=== PATIENT | male | born 2005 | race Caucasian/White ===

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

== ENCOUNTER 2023-02-07 01:31 | Emergency (ER) | payer SELFPAY ==
[~2023-02-07] VITALS: Ht 190.5 cm; Wt 82.6 kg
[2023-02-07 01:32] VITALS: BP 127/76
== END 2023-02-07 04:42 | disposition left against medical advice (07) ==
LOC: M ED 01:31
DX: R05.9 Cough, unspecified (principal); Z53.21 Procedure and treatment not carried out due to patient leaving prior to being seen by health care provider

== ENCOUNTER 2025-10-29 15:32 | Emergency (ER) | payer SELFPAY ==
[~2025-10-29] VITALS: Ht 190.5 cm; Wt 127.0 kg
[2025-10-29 17:36] LABS: BASO # 0.1 10^3/uL (0.0-0.2); BASO % 0.9 % (0.0-1.0); EOS # 0.2 10^3/uL (0.0-0.5); EOS % 2.2 % (0.0-3.0); LYMPH # 2.0 10^3/uL (1.5-5.0); LYMPH % 23.9 % (24.0-44.0); MONO # 0.9 10^3/uL (0.0-0.8); MONO % 10.7 % (2.0-8.0); NEUTROPHILS # 5.3 10^3/uL (1.5-8.5); NEUTROPHILS % 61.8 % (36.0-66.0); PLATELET COUNT, AUTOMATED 290 10^3/uL (150-450)
[2025-10-29 18:00] LABS: ETHYL ALCOHOL (ETHANOL) 0.009 % (0.000-0.010)
[2025-10-29 18:02] LABS: ALT/SGPT 141 U/L (7.0-40); AST/SGOT 110 U/L (<34); CALCIUM LEVEL 9.5 MG/DL (8.5-10.1); CARBON DIOXIDE LEVEL 26 MMOL/L (20-31); CHLORIDE LEVEL 106 MMOL/L (98-107); CREATININE FOR GFR 0.81 MG/DL (0.70-1.30); GLOMERULAR FILTRATION RATE > 90.0 (>60); POTASSIUM SERUM 4.2 MMOL/L (3.5-5.1); SODIUM LEVEL 141 MMOL/L (136-145)
[2025-10-29 18:03] VITALS: BP 155/83; TEMP 98.4; O2SAT 100
[2025-10-29 18:07] LABS: INR 0.9
[2025-10-29] MEDS: PANTOPRAZOLE 40MG TAB PO ONE (20:10)
[2025-10-29] MEDS: ONDANSETRON 4MG ORAL DISINTEGRATING TAB PO ONE (20:10)
[2025-10-29] MEDS ORDERED: ONDA-282 PO (21:54)
[2025-10-29] MEDS ORDERED: PROT1TAB2 PO (21:54)
== END 2025-10-29 22:03 | disposition home or self-care (01) ==
LOC: M ED 15:32
DX: R74.01 Elevation of levels of liver transaminase levels (principal); F10.10 Alcohol abuse, uncomplicated; Z91.013 Allergy to seafood; Z91.018 Allergy to other foods; Z79.899 Other long term (current) drug therapy